=== PATIENT | female | born 1955 | race Two or more races ===

== ENCOUNTER 2017-05-20 12:40 | Inpatient (IN) | payer MEDICARE, MEDICAID ==
[~2017-05-20] VITALS: Ht 167.6 cm; Wt 90.7 kg
--- NOTE | 2017-05-20 13:00 | NUR ---
BB PRIVATE EMS FROM [facility] SENT BY DR BALDERAS FOR POSSIBLE UTI, PATIENT IS AFEBRILE. DENIES HEMTURIA NOR DYSURIA. VSS
[2017-05-20] MEDS ORDERED: ONDANSETRON 4 MG TAB.RAPDIS ONE ×2 (13:08→15:50)
[2017-05-20] MEDS ORDERED: ONDANSETRON 4 MG TAB.RAPDIS SL ONE (13:30)
[2017-05-20 13:36] LABS: EOSINOPHILS % (AUTO) 0.3 % (0.0-6.0); HEMATOCRIT 32 % (33-45); HEMOGLOBIN 10.6 g/dL (11.5-14.8); LYMPHOCYTES # (AUTO) 0.8 /CMM (0.8-4.8); LYMPHOCYTES % (AUTO) 8.1 % (20.0-44.0); MEAN CORPUSCULAR HEMOGLOBIN 32 PG (26.0-33.0); MEAN CORPUSCULAR HGB CONC 33 g/dl (31.0-36.0); MEAN CORPUSCULAR VOLUME 98 fL (82-100); MONOCYTES # (AUTO) 0.6 /CMM (0.1-1.30); MONOCYTES % (AUTO) 5.5 % (2.0-12.0); NEUTROPHILS # (AUTO) 8.7 /CMM (1.8-8.9); NEUTROPHILS % (AUTO) 86.1 % (43.0-81.0); PLATELET COUNT (AUTO) 352 /CMM (150-450); RDW COEFFICIENT OF VARIATION 16.4 (11.5-15.0); WHITE BLOOD COUNT (AUTO) 10.1 K/uL (4.3-11.0)
--- NOTE | 2017-05-20 13:40 | NUR ---
PT ASSISTED TO THE COMMODE. URINE SAMPLE OBTAINED, SENT.
[2017-05-20 13:57] LABS: CALCIUM, SERUM 10.2 mg/dL (8.5-10.1); CREATININE 4.2 mg/dL (0.6-1.3); POTASSIUM 4.7 mmol/L (3.5-5.1)
[2017-05-20 14:01] LABS: ALBUMIN 4.1 g/dL (3.4-5.0); BILIRUBIN,TOTAL 0.6 mg/dL (0.2-1.0); TOTAL PROTEIN, SERUM 7.7 g/dL (6.4-8.2)
[2017-05-20 14:12] LABS: APPEARANCE,URINE Turbid (CLEAR); BILIRUBIN,URINE Negative (NEGATIVE); BLOOD, URINE Small Ery/uL (NEGATIVE); COLOR,URINE Yellow (YELLOW); KETONES,URINE Negative (NEGATIVE); LEUKOCYTE ESTERASE ,URINE Trace (NEGATIVE); NITRITE, URINE Positive (NEGATIVE); PH,URINE 8.5 (5.0-8.0); PROTEIN,URINE >=300 mg/dl (NEGATIVE); UGLUCOSE Negative (NEGATIVE); UROBILINOGEN,URINE 0.2 EU/dL (0.2)
[2017-05-20 14:26] LABS: BACTERIA,URINE Moderate /HPF (None Seen); RBC,URINE 0-3 /HPF (0-2); SQUAMOUS EPITHELIAL CELL,UR Few /HPF (None Seen)
--- NOTE | 2017-05-20 14:41 | NUR ---
PAGED DR BALDERAS
[2017-05-20] MEDS ORDERED: NIFE60TA69 PO (16:18)
[2017-05-20] MEDS ORDERED: DOCU100T2 PO (16:18)
[2017-05-20] MEDS ORDERED: ISOS20TA6 PO (16:18)
[2017-05-20] MEDS ORDERED: LEVE500T9 PO (16:18)
[2017-05-20] MEDS ORDERED: FOLI1TAB16 PO (16:18)
[2017-05-20] MEDS ORDERED: ASPI-1152 PO (16:18)
[2017-05-20] MEDS ORDERED: SUCR1ORA4 PO (16:18)
[2017-05-20] MEDS ORDERED: ESCI5TAB PO (16:18)
[2017-05-20] MEDS ORDERED: ANAS1TAB8 PO (16:18)
[2017-05-20] MEDS ORDERED: PANT40TA2 PO (16:18)
[2017-05-20] MEDS ORDERED: HYDR-4077 PO (16:18)
[2017-05-20] MEDS ORDERED: INSU3INS6 SQ (16:18)
[2017-05-20] MEDS ORDERED: MINO10TA2 PO (16:18)
[2017-05-20] MEDS ORDERED: ATOR80TA PO (16:18)
[2017-05-20] MEDS ORDERED: NITR0.4T48 SL (16:19)
[2017-05-20] MEDS ORDERED: LORA1TAB PO (16:19)
[2017-05-20] MEDS ORDERED: METO5TAB87 PO (16:19)
[2017-05-20] MEDS ORDERED: CODE118S2 PO (16:19)
[2017-05-20] MEDS ORDERED: POLY119P2 PO (16:19)
--- NOTE | 2017-05-20 16:25 | NUR ---
CALLED NURSE SUP FOR TELE BED
--- NOTE | 2017-05-20 16:45 | NUR ---
TELE BED 321-2
--- NOTE | 2017-05-20 16:54 | NUR ---
REPORT GIVEN TO CHEKO ALONZO FOR TELE 321-1.
--- NOTE | 2017-05-20 16:56 | NUR ---
WOOD PATTERN MAKER REPORT NOTE RECEIVED REPORT ON THE PATIENT. PATIENT WILL BE ADMITED TELEMETRY IN ROOM 321-2
[2017-05-20] MEDS ORDERED: ONDANSETRON 4 MG TAB.RAPDIS SL PRN (17:30)
[2017-05-20 18:00] VITALS: BP 159/76
--- NOTE | 2017-05-20 18:00 | NUR ---
PLATFORM MILL SUPERVISOR ADMITTING NOTE PATIENT ARRIVED TO THE UNIT GUILLERMINA SALMON. A/O X2, FORGETFUL, CONFUSED. PATIENT HAS A RIGHT WRIST PATENT IV AND RIGHT CHEST WALL PERMA CATH. DENIES PAIN/DISCOMFORT AT THIS TIME. CHEST IS RISING EQUALLY, BILATERALLY. PATIENT WAS ASSISTED TO THE BED SAFELY. BED IS LOCKED, IN LOWEST POSITION, SIDE RAILS UP X2, BED ALARM IS ON. CALL LIGHT WITHIN REACH. PATIENT WAS EDUCATED TO CALL FOR ASSISTANCE. ALL NEEDS ARE MET AT THIS TIME. DR BALDERAS IS INFORMED OF PATIENT'S ARRIVAL TO THE UNIT. WILL ENDORSE TO MARCOS ALONZO FOR KEMAL.
--- NOTE | 2017-05-20 19:19 | NUR ---
SHANK BONER CLOSING NOTE SBAR BEDSIDE REPORT GIVEN TO CLINTON RODRÍGUEZ. Y. A/O X2, FORGETFUL, CONFUSED. PATIENT HAS A RIGHT WRIST PATENT IV AND RIGHT CHEST WALL PERMA CATH. DENIES PAIN/DISCOMFORT AT THIS TIME. CHEST IS RISING EQUALLY, BILATERALLY. PATIENT WAS ASSISTED TO THE BED SAFELY. BED IS LOCKED, IN LOWEST POSITION, SIDE RAILS UP X2, BED ALARM IS ON. CALL LIGHT WITHIN REACH. PATIENT WAS EDUCATED TO CALL FOR ASSISTANCE. ALL NEEDS ARE MET AT THIS TIME. DR BALDERAS IS INFORMED OF PATIENT'S ARRIVAL TO THE UNIT. ENDORSED TO CLINTON RODRÍGUEZ FOR KEMAL.
--- NOTE | 2017-05-20 19:30 | NUR ---
RN OPENING NOTES PATIENT IS IN BED, ALERT AND ORIENTED X2, EASY TO AROUSE. VS STABLE. NO C/O PAIN. NO SOB NOTED. RESPIRATIONS EVEN AND UNLABORED. IV ACCESS ON R WRIST PATENT AND INTACT. RIGHT CHEST WALL PERMA CATH. AWATING FOR MD ORDERS. BED IN LOW AND LOCKED POSITION. SIDE RAILS X2. CALL LIGHT WITHIN EASY REACH. CONTINUE TO MONITOR AND ASSESS DURING THE SHIFT.
[2017-05-20 20:00] VITALS: BP 159/76
[2017-05-20] MEDS ORDERED: DEXTROSE 50%-WATER 50 ML DISP.SYRIN IV PRN (22:00)
[2017-05-20] MEDS ORDERED: CEFTRIAXONE 1 G VIAL ONE (22:22)
[2017-05-20] MEDS ORDERED: ATORVASTATIN 40 MG TABLET ONE (22:23)
[2017-05-20] MEDS: ATORVASTATIN 40 MG TABLET PO SCH (22:48)
--- NOTE | 2017-05-20 22:50 | NUR ---
RN NOTES PATIENT C/O NAUSEA AND VOMITING. 4 MG ZOFRAN ADMINISTERED PO. CONTINUE TO MONITOR.
[2017-05-20] MEDS: IV NS 0.9% 1,000 ML IV PRN (23:01)
[2017-05-20] MEDS: CEFTRIAXONE 1 G in IV D5W 50 ML IV SCH (23:01)
[2017-05-20] MEDS: BLOOD SUGAR DIAGNOSTIC 1 EACH STRIP IN SCH (23:38)
[2017-05-21] VITALS: BP 154/69
[2017-05-21] MEDS: INSULIN REGULAR, HUMAN 100 UNIT/ML 3 ML VIAL SQ PRN ×4 (00:38→21:19)
[2017-05-21 04:00] VITALS: BP 168/75
[2017-05-21 06:33] LABS: BASOPHILS % (AUTO) 0.3 % (0.0-2.0); HEMATOCRIT 30 % (33-45); HEMOGLOBIN 9.9 g/dL (11.5-14.8); LYMPHOCYTES # (AUTO) 1.1 /CMM (0.8-4.8); LYMPHOCYTES % (AUTO) 11.6 % (20.0-44.0); MEAN CORPUSCULAR HEMOGLOBIN 32 PG (26.0-33.0); MEAN CORPUSCULAR HGB CONC 33 g/dl (31.0-36.0); MEAN CORPUSCULAR VOLUME 98 fL (82-100); MONOCYTES # (AUTO) 0.8 /CMM (0.1-1.30); MONOCYTES % (AUTO) 9.2 % (2.0-12.0); NEUTROPHILS # (AUTO) 7.2 /CMM (1.8-8.9); NEUTROPHILS % (AUTO) 78.9 % (43.0-81.0); PLATELET COUNT (AUTO) 314 /CMM (150-450); RDW COEFFICIENT OF VARIATION 16.4 (11.5-15.0); RED BLOOD CELL COUNT(AUTO) 3.11 MIL/uL (4.0-5.2); WHITE BLOOD COUNT (AUTO) 9.1 K/uL (4.3-11.0)
[2017-05-21] MEDS: BLOOD SUGAR DIAGNOSTIC 1 EACH STRIP IN SCH ×4 (06:36→21:12)
[2017-05-21 06:44] LABS: THYROID STIMULATING HORMONE 1.26 uIU/mL (0.358-3.74)
--- NOTE | 2017-05-21 06:51 | NUR ---
RN CLOSING NOTES PATIENT IS SLEEPING IN BED, EASY TO AROUSE, ALERT AND ORIENTED X2. VS STABLE. NO SOB NOTED. RESPIRATIONS EVEN AND UNLABORED. IV ACCESS ON R WRIST PATENT AND INTACT, INFUSING NS AT 70 ML/HR. NO REDNESS OR INFILTRATION NOTED. RIGHT CHEST WALL PERMA CATH. PICTURES TAKEN AND PLACED IN THE CHART. ALL NEEDS ARE MET AND MEDICATIONS GIVEN PER MD ORDER. BED IN LOW AND LOCKED POSITION. SIDE RAILS X2. CALL LIGHT WITHIN EASY REACH. WILL ENDORSE TO RN DAY SHIFT FOR CONTINUITY OF CARE.
[2017-05-21 07:02] VITALS: BP 164/58
--- NOTE | 2017-05-21 07:15 | NUR ---
RN OPENING NOTES RECEIVED PT. IN BED AWAKE WATCHING TV, A&OX4. BREATHING UNLABORED, AND EVENLY ON OXYGEN AT 5L/MIN VIA NASAL CANNULA. NO S/S OF ACUTE DISTRESS. IV FLUIDS RUNNING AT 75 ML/HR. ASSISTED PT. TO BED JOHNS. PT. HAD 450 CC OF CLEAR AND YELLOW URINE OUTPUT. RIGHT LEG HAS NADIYA BANDAGE WRAPPED AROUND IT, DRESSING IS CLEAN, DRY AND INTACT. BED IS IN LOWEST AND LOCKED POSITION. 2 SIDE RAILS UP, AND INSTRUCTED PT. TO USE CALL LIGHT FOR ASSISTANCE. WILL CONTINUE TO ASSESS AND MONITOR. ALL NEEDS MET.
--- NOTE | 2017-05-21 07:41 | NUR ---
RN OPENING NOTES RECEIVED PT. IN BED SLEEPING. BREATHING UNLABORED, AND EVENLY ON ROOM AIR. NO S/S OF ACUTE DISTRESS. IV FLUIDS RUNNING AT 70 ML/HR. BED IS IN LOWEST AND LOCKED POSITION. 2 SIDE RAILS UP, AND CALL LIGHT WITHIN REACH. WILL CONTINUE TO ASSESS AND MONITOR.
[2017-05-21 08:00] VITALS: BP 121/61
--- NOTE | 2017-05-21 08:50 | NUR ---
ms rn received on bed, awake,alert,oriented x2 , patient still nauseous, no sob noted, will monitor patient's condition.
[2017-05-21] MEDS ORDERED: POLYETHYLENE GLYCOL 3350 17 GM POWD.PACK PO PRN (09:00)
[2017-05-21] MEDS: PANTOPRAZOLE 40 MG TABLET.DR PO SCH ×2 (09:00→17:42)
[2017-05-21] MEDS ORDERED: CODEINE/PROMETHAZINE HCL 5 ML UDC PO PRN ×2 (09:00→10:30)
[2017-05-21] MEDS ORDERED: MINOXIDIL (10MG) 10 MG TABLET PO SCH (09:00)
[2017-05-21] MEDS: ANASTROZOLE 1 MG TABLET PO SCH (09:00)
[2017-05-21] MEDS: SUCRALFATE 1 G/10 ML UDC PO SCH ×4 (09:00→20:37)
[2017-05-21] MEDS: DOCUSATE SODIUM 100 MG CAPSULE PO SCH ×3 (09:00→17:52)
[2017-05-21] MEDS: hydrALAZINE HCL 50 MG TABLET PO SCH ×3 (09:00→17:43)
[2017-05-21] MEDS ORDERED: NITROGLYCERIN 0.4 MG/TAB BOTTLE SL PRN (09:00)
--- NOTE | 2017-05-21 09:00 | NUR ---
ms rn refused breakfast, for dialysis today..
--- NOTE | 2017-05-21 09:50 | NUR ---
MS RN REFUSED MEDICATIONS,NOT FEELING WELL, WILL OFFER AGAIN LATER.
--- NOTE | 2017-05-21 12:00 | NUR ---
MS RN BS - 231 - REFUSED COVERAGE DUE TO PATIENT NOT EATING , NO S/S OF HYPER/HYPOGLYCEMIA NOTED.
[2017-05-21] MEDS: METOCLOPRAMIDE HCL 10 MG TABLET PO SCH ×3 (13:32→20:37)
[2017-05-21 16:00] VITALS: BP 120/68
--- NOTE | 2017-05-21 17:30 | NUR ---
MS RN PATIENT GET UP AND EAT, DUE MEDS GIVEN TOLERATED WELL. BS - 186 - 3 UNITS INSULIN WAS GIVEN SQ,ALL NEEDS ATTENDED.
[2017-05-21] MEDS: MINOXIDIL (2.5MG) 2.5 MG TABLET PO SCH ×2 (17:44→17:50)
[2017-05-21] MEDS: LEVETIRACETAM (250 MG) 250 MG TABLET PO SCH ×2 (17:48→20:37)
[2017-05-21] MEDS: ESCITALOPRAM OXALATE (10 MG) 10 MG TABLET PO SCH (17:49)
[2017-05-21] MEDS: ASPIRIN EC 81 MG TABLET.DR PO SCH (17:49)
[2017-05-21] MEDS: ISOSORBIDE MONONITRATE 20 MG TABLET PO SCH (17:49)
[2017-05-21] MEDS: FOLIC ACID 1 MG TABLET PO SCH (17:49)
[2017-05-21] MEDS: NIFEdipine XL 60 MG TAB PO SCH (17:50)
--- NOTE | 2017-05-21 19:15 | NUR ---
MS RN OPENING NOTES: RECEIVED PT IN BED AND IS ASLEEP. PT APPEARS TO BE LETHARGIC BUT PT IS AROUSABLE TO NAME AND TOUCH. PT IS SPANISHING SPEAKING AND UNDERSTANDING ONLY BUT CAN UNDERSTAND [place] CITIZEN. PT IS A/OX2-3. PT HAS IV ON R WRIST #22G AND HAS BEEN FLUSHED. PT DOES NOT WANT TO BE CONNECTED TO IV AT THIS MOMENT. WILL ATTEMPT TO CONNECT HER AT ANOTHER TIME. CALL LIGHT WITHIN PT'S REACH. BED KEPT IN LOW, LOCKED POSITION, AND SIDE RAILS X 2UP. WILL CONTINUE TO MONITOR PT.
[2017-05-21 20:00] VITALS: BP 119/42
[2017-05-21] MEDS: CEFTRIAXONE 1 G in IV D5W 50 ML IV SCH (20:36)
[2017-05-21] MEDS: INSULIN DETEMIR 100 UNIT/ML CARTRIDGE SQ SCH (21:20)
--- NOTE | 2017-05-21 21:20 | NUR ---
MS RN NOTES: BLOOD SUGAR WAS 155. 8 UNITS OF LEVEMIR WAS ADMINISTERED AND 2 UNITS OF INSULIN WAS ADMINISTERED WELL. SNACK WAS OFFERED AND PROVIDED TO PT. PT STILL SLEEPY BUT LEFT JUICE AT BEDSIDE. WILL CONTINUE TO MONITOR PT.
--- NOTE | 2017-05-21 21:30 | NUR ---
MS RN NOTES: CONSENT FOR HEMODIALYSIS OBTAINED AND PLACED IN CHART.
[2017-05-21] MEDS ORDERED: INSULIN DETEMIR 100 UNIT/ML CARTRIDGE SQ SCH (22:00)
[2017-05-21] MEDS ORDERED: Medication Not On Formulary EA (Atorvastatin Calcium (Lipitor) 80 MG) PO SCH (22:00)
[2017-05-21] MEDS ORDERED: INSULIN GLARGINE, 100 UNIT/ML CARTRIDGE SQ SCH (22:00)
[2017-05-21] MEDS: LORAZEPAM 1 MG TABLET PO PRN (23:00)
--- NOTE | 2017-05-21 23:00 | NUR ---
MS RN NOTES: PT REPORTED THAT SHE WAS GETTING ANXIETY AND REQUESTING MEDICATION FOR ANXIETY. PT WAS ADMINISTERED ATIVAN PO. WILL CONTINUE TO MONITOR PT.
--- NOTE | 2017-05-21 23:45 | NUR ---
MS RN NOTES: CALLED DR. BALDERAS TO INFORM HIM THAT PATIENT IS HAVING NAUSEA BUT NO EMESIS AND ALSO THAT PT IS HAVING AB PAIN. NO ORDERS WERE GIVEN. WILL CONTINUE TO MONITOR PT.
[2017-05-22] MEDS: IV NS 0.9% 1,000 ML IV PRN (05:26)
[2017-05-22] MEDS: BLOOD SUGAR DIAGNOSTIC 1 EACH STRIP IN SCH ×4 (06:06→21:57)
[2017-05-22] MEDS: INSULIN REGULAR, HUMAN 100 UNIT/ML 3 ML VIAL SQ PRN ×2 (06:38→21:48)
--- NOTE | 2017-05-22 06:38 | NUR ---
MS RN NOTES: BLOOD SUGAR THIS AM WAS 139. 2 UNITS OF INSULIN WAS ADMINISTERED. WILL CONTINUE TO MONITOR PT.
--- NOTE | 2017-05-22 06:48 | NUR ---
MS RN CLOSING NOTES: ALL NEEDS WERE ATTENDED ANTICIPATED FOR. PT IS IN BED ASLEEP. PT AROUSABLE TO NAME AND TOUCH. PT IS SENEGALESE SPEAKING AND UNDERSTANDING ONLY BUT CAN ALSO UNDERSTAND SOME CITIZEN OF [place]. PT IS A/OX2-3 WHEN SHE WAS AWAKE. PT HAS IV ON R WRIST #22G AND IS BEING INFUSED WITH NS AT 70ML/HR. BEDSIDE COMMODE MADE AVAILABLE. CALL LIGHT WITHIN PT'S REACH. BED KEPT IN LOW, LOCKED POSITION, AND SIDE RAILS X 2UP. WILL ENDORSE TO AM NURSE FOR KEMAL.
--- NOTE | 2017-05-22 07:36 | NUR ---
MS/RN OPENING NOTE PATIENT IN BED IN STABLE CONDITION. A/O 1-2, BELARUSIAN SPEAKING. NO SIGNS OF ACUTE DISTRESS. NO COMPLAIN OF PAIN OR DISCOMFORT. ALL NEEDS ATTENDED TO. CALL LIGHT WITHIN REACH. WILL CONTINUE TO MONITOR TO ENSURE SAFETY.
[2017-05-22 08:00] VITALS: BP 143/69
[2017-05-22] MEDS: SUCRALFATE 1 G/10 ML UDC PO SCH ×4 (08:44→20:25)
[2017-05-22] MEDS: PANTOPRAZOLE 40 MG TABLET.DR PO SCH ×2 (08:45→16:57)
[2017-05-22] MEDS: DOCUSATE SODIUM 100 MG CAPSULE PO SCH ×2 (08:45→16:57)
[2017-05-22] MEDS: METOCLOPRAMIDE HCL 10 MG TABLET PO SCH ×4 (08:45→20:25)
[2017-05-22] MEDS: ESCITALOPRAM OXALATE (10 MG) 10 MG TABLET PO SCH (08:45)
[2017-05-22] MEDS: FOLIC ACID 1 MG TABLET PO SCH (08:45)
[2017-05-22] MEDS: ASPIRIN EC 81 MG TABLET.DR PO SCH (08:45)
[2017-05-22] MEDS: ANASTROZOLE 1 MG TABLET PO SCH (08:45)
[2017-05-22] MEDS: ISOSORBIDE MONONITRATE 20 MG TABLET PO SCH (08:45)
[2017-05-22] MEDS: hydrALAZINE HCL 50 MG TABLET PO SCH ×3 (08:46→16:58)
[2017-05-22] MEDS: NIFEdipine XL 60 MG TAB PO SCH (08:46)
[2017-05-22] MEDS: LEVETIRACETAM (250 MG) 250 MG TABLET PO SCH ×2 (08:53→20:25)
[2017-05-22] MEDS: INSULIN DETEMIR 100 UNIT/ML CARTRIDGE SQ SCH ×2 (08:55→21:49)
--- NOTE | 2017-05-22 09:00 | NUR ---
MS/RN HYDRALAZINE AND PROCARDIA HELD 9AM BP MEDS HYDRALAZINE AND PROCARDIA HELD SECONDARY TO PATIENT SCHEDULE FOR HEMODIALYSIS TREATMENT TODAY
[2017-05-22] MEDS ORDERED: EPOETIN ALFA (10,000 UNIT) 10,000 UNIT/ML VIAL IV ONE (12:00)
--- NOTE | 2017-05-22 12:45 | NUR ---
MS/RN SEEN BY DR BALDERAS PATIENT SEEN BY DR BALDERAS WITH NO ORDERS AT THIS TIME.
[2017-05-22] MEDS: APIXABAN 5 MG TABLET PO SCH (16:57)
[2017-05-22] MEDS: MINOXIDIL (2.5MG) 2.5 MG TABLET PO SCH (16:57)
[2017-05-22 17:07] VITALS: BP 162/74
--- NOTE | 2017-05-22 18:14 | NUR ---
MS/RN CLOSING NOTE PATIENT IN BED IN STABLE CONDITION. A/O X 2-3, AZERBAIJANI SPEAKING. NO SIGNS OF ACUTE DISTRESS. NO COMPLAIN OF PAIN OR DISCOMFORT. ALL NEEDS ATTENDED TO. CALL LIGHT WITHIN REACH. WILL ENDORSE TO NEXT SHIFT FOR CONTINUITY OF CARE.
--- NOTE | 2017-05-22 19:30 | NUR ---
RN OPENING NOTES PATIENT IS IN BED, ALERT AND ORIENTED X2, EASY TO AROUSE. VS STABLE. NO C/O PAIN. NO SOB NOTED. RESPIRATIONS EVEN AND UNLABORED. IV ACCESS ON R WRIST PATENT AND INTACT, INFUSING NS AT 70 ML/HR. NO REDNESS OR INFILTRATION NOTED. RIGHT CHEST WALL PERMA CATH. BED IN LOW AND LOCKED POSITION. SIDE RAILS X2. CALL LIGHT WITHIN EASY REACH. CONTINUE TO MONITOR AND ASSESS DURING THE SHIFT.
[2017-05-22 20:00] VITALS: BP 121/66
[2017-05-22 20:16] VITALS: BP 121/66
[2017-05-22] MEDS: CEFTRIAXONE 1 G in IV D5W 50 ML IV SCH (21:40)
[2017-05-22] MEDS: ATORVASTATIN 40 MG TABLET PO SCH (21:50)
[2017-05-22] MEDS: LORAZEPAM 1 MG TABLET PO PRN (23:36)
[2017-05-23] MEDS: IV NS 0.9% 1,000 ML IV PRN (06:10)
[2017-05-23] MEDS: BLOOD SUGAR DIAGNOSTIC 1 EACH STRIP IN SCH ×4 (06:21→22:19)
[2017-05-23] MEDS: INSULIN REGULAR, HUMAN 100 UNIT/ML 3 ML VIAL SQ PRN ×2 (06:22→22:23)
--- NOTE | 2017-05-23 06:23 | NUR ---
RN NOTES BS 83. NO INSULIN ADMINISTERED. CONTINUE TO MONITOR.
--- NOTE | 2017-05-23 06:47 | NUR ---
RN CLOSING NOTES PATIENT IS SLEEPING IN BED, EASY TO AROUSE. VS STABLE. NO SOB NOTED. RESPIRATIONS EVEN AND UNLABORED. IV ACCESS ON R WRIST PATENT AND INTACT, INFUSING NS AT 70 ML/HR. NO REDNESS OR INFILTRATION NOTED. RIGHT CHEST WALL PERMA CATH. ALL NEEDS ARE MET AND MEDICATIONS GIVEN PER MD ORDER. BED IN LOW AND LOCKED POSITION. SIDE RAILS X2. CALL LIGHT WITHIN EASY REACH. WILL ENDORSE TO RN DAY SHIFT FOR CONTINUITY OF CARE.
--- NOTE | 2017-05-23 07:34 | NUR ---
MS RN OPENING NOTES RECEIVED PATIENT IN STABLE CONDITION. IN NO APPARENT DISTRESS. PATIENT IS RESTING IN BED. BEDSIDE RAILS ARE UP X2. BED IS LOCKED AND LOWERED. CALL LIGHT IS WITHIN REACH. WILL CONTINUE TO MONITOR.
[2017-05-23 08:00] VITALS: BP 151/92
[2017-05-23] MEDS: LORAZEPAM 1 MG TABLET PO PRN ×2 (09:14→18:01)
[2017-05-23] MEDS: LEVETIRACETAM (250 MG) 250 MG TABLET PO SCH ×2 (09:15→20:25)
[2017-05-23] MEDS: METOCLOPRAMIDE HCL 10 MG TABLET PO SCH ×4 (09:15→20:25)
[2017-05-23] MEDS: ISOSORBIDE MONONITRATE 20 MG TABLET PO SCH (09:16)
[2017-05-23] MEDS: DOCUSATE SODIUM 100 MG CAPSULE PO SCH (09:16)
[2017-05-23] MEDS: ANASTROZOLE 1 MG TABLET PO SCH (09:16)
[2017-05-23] MEDS: MINOXIDIL (2.5MG) 2.5 MG TABLET PO SCH ×2 (09:17→16:39)
[2017-05-23] MEDS: hydrALAZINE HCL 50 MG TABLET PO SCH ×3 (09:17→16:39)
[2017-05-23] MEDS: PANTOPRAZOLE 40 MG TABLET.DR PO SCH ×2 (09:17→16:18)
[2017-05-23] MEDS: FOLIC ACID 1 MG TABLET PO SCH (09:17)
[2017-05-23] MEDS: SUCRALFATE 1 G/10 ML UDC PO SCH ×4 (09:20→20:25)
[2017-05-23] MEDS: NIFEdipine XL 60 MG TAB PO SCH (09:21)
[2017-05-23] MEDS: ESCITALOPRAM OXALATE (10 MG) 10 MG TABLET PO SCH (09:24)
[2017-05-23] MEDS: INSULIN DETEMIR 100 UNIT/ML CARTRIDGE SQ SCH ×2 (09:24→20:29)
[2017-05-23] MEDS: APIXABAN 5 MG TABLET PO SCH ×2 (09:24→16:17)
[2017-05-23 16:00] VITALS: BP 152/58
--- NOTE | 2017-05-23 18:31 | NUR ---
MS RN CLOSING NOTES PATIENT IS IN STABLE CONDITION. IN NO APPARENT DISTRESS. BEDSIDE RAILS ARE UP X2. BED IS LOCKED AND LOWERED. ALL NEEDS WERE MET. CALL LIGHT IS WITHIN REACH. WILL ENDORSE CARE TO ONLINE ADVERTISING ANALYST NURSE FOR KEMAL.
[2017-05-23 20:00] VITALS: BP 103/41
[2017-05-23] MEDS: CEFTRIAXONE 1 G in IV D5W 50 ML IV SCH (20:33)
[2017-05-23 22:00] VITALS: BP 103/41
--- NOTE | 2017-05-23 22:00 | NUR ---
MS RN NOTE BLOOD SUGAR 149. 2 UNITS OF INSULIN GIVEN.
[2017-05-23] MEDS: ATORVASTATIN 40 MG TABLET PO SCH (22:19)
--- NOTE | 2017-05-24 01:00 | NUR ---
MS RN NOTE IV INFILTRATED. REMOVED. PATIENT REFUSING NEW IV AT THIS TIME. EXPLAINED BENEFITS. CONTINUED TO REFUSE. WILL TRY AGAIN LATER.
--- NOTE | 2017-05-24 05:00 | NUR ---
MS RN NOTE PATIENT CONTINUES TO REFUSE IV INSERTION. EXPLAINED IMPORTANCE OF IV TO PATIENT. CONTINUES TO REFUSE AT THIS TIME. WILL TRY AGAIN LATER.
--- NOTE | 2017-05-24 06:01 | NUR ---
MS RN CLOSING NOTES PATIENT IS IN STABLE CONDITION. IN NO APPARENT DISTRESS. CONTINUES TO INSERT IV INSERTION. BEDSIDE RAILS ARE UP X2. BED IS LOCKED AND LOWERED. ALL NEEDS WERE MET. CALL LIGHT IS WITHIN REACH. WILL ENDORSE CARE TO DAY SHIFT NURSE FOR KEMAL.
[2017-05-24] MEDS: BLOOD SUGAR DIAGNOSTIC 1 EACH STRIP IN SCH ×4 (07:00→21:35)
[2017-05-24 08:00] VITALS: BP 144/63
--- NOTE | 2017-05-24 09:00 | NUR ---
CALLED PHARMACY ABOUT ELIQUIS PATIENT IS SCHEDULED TO RECEIVE AT 0900. THEY WILL BRING UP THE MEDICATION
[2017-05-24] MEDS: SUCRALFATE 1 G/10 ML UDC PO SCH ×4 (09:31→21:27)
[2017-05-24] MEDS: MINOXIDIL (2.5MG) 2.5 MG TABLET PO SCH ×2 (09:32→16:21)
[2017-05-24] MEDS: ESCITALOPRAM OXALATE (10 MG) 10 MG TABLET PO SCH (09:32)
[2017-05-24] MEDS: ANASTROZOLE 1 MG TABLET PO SCH (09:33)
[2017-05-24] MEDS: LORAZEPAM 1 MG TABLET PO PRN ×2 (09:34→18:36)
[2017-05-24] MEDS: NIFEdipine XL 60 MG TAB PO SCH (09:34)
[2017-05-24] MEDS: hydrALAZINE HCL 50 MG TABLET PO SCH ×3 (09:34→16:20)
[2017-05-24] MEDS: LEVETIRACETAM (250 MG) 250 MG TABLET PO SCH ×2 (09:34→21:27)
[2017-05-24] MEDS: PANTOPRAZOLE 40 MG TABLET.DR PO SCH ×2 (09:34→16:23)
[2017-05-24] MEDS: FOLIC ACID 1 MG TABLET PO SCH (09:34)
[2017-05-24] MEDS: ISOSORBIDE MONONITRATE 20 MG TABLET PO SCH (09:35)
[2017-05-24] MEDS: METOCLOPRAMIDE HCL 10 MG TABLET PO SCH ×4 (09:35→21:28)
[2017-05-24] MEDS: INSULIN DETEMIR 100 UNIT/ML CARTRIDGE SQ SCH ×2 (09:44→21:29)
--- NOTE | 2017-05-24 10:00 | NUR ---
CALLED PHARMACY FOR ELIQUIS X2. HAVE NOT BROUGHT ELIQUIS.
[2017-05-24] MEDS ORDERED: COLLOIDAL OATMEAL/LOTION 354 ML BOTTLE TP PRN (10:30)
[2017-05-24] MEDS: APIXABAN 5 MG TABLET PO SCH ×2 (12:12→16:23)
[2017-05-24] MEDS: INSULIN REGULAR, HUMAN 100 UNIT/ML 3 ML VIAL SQ PRN (12:46)
--- NOTE | 2017-05-24 15:00 | NUR ---
PATIENT STARTED DIALYSIS.
[2017-05-24 16:00] VITALS: BP 138/69
--- NOTE | 2017-05-24 16:20 | NUR ---
SHAVON TELLEZ DUE TO PATIENT CURRENTLY RECEIVING DIALYSIS Addendum: 05/24/17 at 1621 by ALANA VALERA RN SHAVON KELLOGG
--- NOTE | 2017-05-24 17:00 | NUR ---
PATIENT FINISHED DIALYSIS. 1,800 OUTPUT. VITAL SIGNS STABLE. BP 126/51. HEART RATE 80. TEMPERATURE 98F
[2017-05-24] MEDS: TRAMADOL HCL 50 MG TABLET PO PRN (17:52)
--- NOTE | 2017-05-24 18:47 | NUR ---
MS RN CLOSING NOTES PATIENT IS IN STABLE CONDITION. IN NO APPARENT DISTRESS. PATIENT IS RELAXING IN BED. CALL LIGHT IS WITHIN REACH BEDSIDE RAILS ARE UP X2. BED IS LOCKED AND LOWERED. ALL NEEDS WERE MET. WILL ENDORSE CARE TO HEAVY MOBILE EQUIPMENT REPAIRER NURSE FOR KEMAL.
[2017-05-24 20:12] VITALS: BP 142/73
[2017-05-24] MEDS: CEFTRIAXONE 1 G in IV D5W 50 ML IV SCH (21:25)
[2017-05-24] MEDS: ATORVASTATIN 40 MG TABLET PO SCH (21:28)
[2017-05-24 22:00] VITALS: BP 142/73
[2017-05-25] MEDS: TRAMADOL HCL 50 MG TABLET PO PRN (01:13)
[2017-05-25] MEDS: LORAZEPAM 1 MG TABLET PO PRN (02:34)
--- NOTE | 2017-05-25 06:31 | NUR ---
MS RN NOTE PATIENT STABLE. SLEEPING AT THIS TIME WITH NO DISTRESS NOTED. BLOOD SUGAR 94. NO COVERAGE NEEDED. ALL NEEDS MET AND ATTENDED TO. WILL ENDORSE TO DAY SHIFT FOR KEMAL.
[2017-05-25] MEDS: BLOOD SUGAR DIAGNOSTIC 1 EACH STRIP IN SCH ×3 (06:48→17:33)
--- NOTE | 2017-05-25 07:31 | NUR ---
MS RN OPENING NOTES PATIENT RECEIVED AWAKE IN BED IN NO ACUTE SIGNS OF DISTRESS. A/O X2, FILIPINO SPEAKING, DENIES PAIN OR DISCOMFORTS AT THIS TIME. ON ROOM AIR, RESPIRATIONS EVEN AND UNLABORED. IV ACCESS ON AC PATENT AND INTACT. PT HAS RIGHT CHEST WALL PERMA CATH IN PLACED. BED IN LOW AND LOCKED POSITION WITH SIDE RAILS UP X2. CALL LIGHT WITHIN EASY REACH. WILL CONTINUE TO MONITOR.
[2017-05-25 08:00] VITALS: BP 131/47
[2017-05-25] MEDS: INSULIN DETEMIR 100 UNIT/ML CARTRIDGE SQ SCH (09:00)
[2017-05-25] MEDS: hydrALAZINE HCL 50 MG TABLET PO SCH ×3 (09:00→17:02)
[2017-05-25] MEDS: MINOXIDIL (2.5MG) 2.5 MG TABLET PO SCH ×2 (09:00→17:03)
[2017-05-25] MEDS: NIFEdipine XL 60 MG TAB PO SCH (09:00)
[2017-05-25] MEDS: SUCRALFATE 1 G/10 ML UDC PO SCH ×3 (09:08→17:02)
[2017-05-25] MEDS: APIXABAN 5 MG TABLET PO SCH ×2 (09:08→17:04)
[2017-05-25] MEDS: ANASTROZOLE 1 MG TABLET PO SCH (09:10)
[2017-05-25] MEDS: LEVETIRACETAM (250 MG) 250 MG TABLET PO SCH (09:10)
[2017-05-25] MEDS: PANTOPRAZOLE 40 MG TABLET.DR PO SCH ×2 (09:10→17:03)
[2017-05-25] MEDS: FOLIC ACID 1 MG TABLET PO SCH (09:10)
[2017-05-25] MEDS: METOCLOPRAMIDE HCL 10 MG TABLET PO SCH ×3 (09:10→17:03)
[2017-05-25] MEDS: ESCITALOPRAM OXALATE (10 MG) 10 MG TABLET PO SCH (09:11)
[2017-05-25] MEDS: ISOSORBIDE MONONITRATE 20 MG TABLET PO SCH (09:14)
--- NOTE | 2017-05-25 09:28 | NUR ---
RN NOTES PT REFUSED INSULIN LEVEMIR 6U THIS MORNING BEC BS IS 97 MGDL. WILL CONTINUE TO MONITOR
[2017-05-25 16:00] VITALS: BP 144/64
--- NOTE | 2017-05-25 16:59 | NUR ---
RN NOTES PATIENT FOR DISCHARGE THIA AFTERNOON TO [facility]. REPORTS GIVEN TO STAFF TALI.
[2017-05-25] MEDS: INSULIN REGULAR, HUMAN 100 UNIT/ML 3 ML VIAL SQ PRN (17:34)
--- NOTE | 2017-05-25 18:40 | NUR ---
MS RN CLOSING NOTES PATIENT AWAKE AND RESTING @ MODERATE HIGH BACKREST IN BED. A/O X3, YI SPEAKING. S NO SIGNIFICANT CHANGES NOTED THROUGHOUT THE DAY. ON ROOM AIR, RESPIRATIONS EVEN AND UNLABORED. IV ACCESS ON AC PATENT AND INTACT. PT HAS RIGHT CHEST WALL PERMA CATH IN PLACED. HOB ELEVATED. KEPT BED IN LOW AND LOCKED POSITION WITH SIDE RAILS UP X2. CALL LIGHT WITHIN EASY REACH. ALL NEEDS AND CARE PROVIDED WELL. PT FOR DISCHARGE TONIGHT TO [facility]. EMT CREW CALLED AND WILL COME AND PICK-UP PT @ 1930. WILL ENDORSED TO HUMAN RESOURCES GENERALIST NURSE.
--- NOTE | 2017-05-25 19:15 | NUR ---
RN OPEN NOTES RECEIVED PATIENT AWAKE IN BED. A/O X3. NO SIGNS OF DISTRESS OR DISCOMFORT. BREATHING EVEN AND UNLABORED. IV ACCESS IN RAC PATENT AND INTACT, NO SIGNS OF REDNESS OR INFILTRATION. HAS RCW PERMACATH INTACT. BED IN LOW LOCKED POSITION WITH SIDE RAILS X3. CALL LIGHT WITHIN REACH. PAT[facility], REPORT WAS ALSO GIVEN PER VIVIANE ALONZO. WILL CONTINUE TO MONITOR.
[2017-05-25 20:00] VITALS: BP 146/58
--- NOTE | 2017-05-25 20:15 | NUR ---
RN CLOSING NOTES PATIENT DISCHARGE TO [facility] IN STABLE CONDITION VIA [facility] WITH FAMILY AT BEDSIDE. NO SIGNS OF DISTRESS OR DISCOMFORT. BREATHING EVEN AND UNLABORED. DENIES ANY PAIN. IV ACCESS IN [facility] WAS REMOVED. ALL PATIENT BELONGINGS ARE WITH PATIENT. SKINS INTACT. DISCHARGE EDUCATION AND INSTRUCTIONS GIVEN AND PATIENT VERBALIZE UNDERSTANDING. PATIENT TO FOLLOW UP WITH PRIMARY CARE PHYSICIAN.
== END 2017-05-25 20:15 | DRG 308 ==
LOC: ER 12:41 → TELE 17:00 → MED 05-21 11:20
PROVIDERS: ADMIT Internal Medicine; ATTEND Internal Medicine
PROC: 5A1D70Z Performance of Urinary Filtration, Intermittent, Less than 6 Hours Per Day (ICD-10-PCS; principal; 2017-05-22)
PROC: 5A1D70Z Performance of Urinary Filtration, Intermittent, Less than 6 Hours Per Day (ICD-10-PCS; 2017-05-24)
DX: I48.91 Unspecified atrial fibrillation (principal); G93.40 Encephalopathy, unspecified; J96.90 Respiratory failure, unspecified, unspecified whether with hypoxia or hypercapnia; I13.2 Hypertensive heart and chronic kidney disease with heart failure and with stage 5 chronic kidney disease, or end stage renal disease; J18.9 Pneumonia, unspecified organism; F03.91 Unspecified dementia, unspecified severity, with behavioral disturbance; E11.22 Type 2 diabetes mellitus with diabetic chronic kidney disease; I50.30 Unspecified diastolic (congestive) heart failure; N18.6 End stage renal disease; I50.33 Acute on chronic diastolic (congestive) heart failure; N39.0 Urinary tract infection, site not specified; I27.21 Secondary pulmonary arterial hypertension; D63.8 Anemia in other chronic diseases classified elsewhere; D63.1 Anemia in chronic kidney disease; I25.10 Atherosclerotic heart disease of native coronary artery without angina pectoris; Z85.3 Personal history of malignant neoplasm of breast; Z79.899 Other long term (current) drug therapy; Z99.2 Dependence on renal dialysis; Z79.01 Long term (current) use of anticoagulants; Z79.4 Long term (current) use of insulin; G40.409 Other generalized epilepsy and epileptic syndromes, not intractable, without status epilepticus; K21.9 Gastro-esophageal reflux disease without esophagitis
CPT/HCPCS: 36415; 70450-TC; 71010-TC; 80053-TC; 80061-TC; 81000-TC; 82962-TC; 83605-TC; 84443-TC; 85025-TC; 87081-TC; 87086-TC; 90935-TC; 93307-TC; J0696; J0885; J1815; J7030; J7060; J8597; Q0162; Z7610

== ENCOUNTER 2019-08-03 19:08 | Inpatient (IN) | payer MEDICARE, MEDICAID ==
[~2019-08-03 19:08] MED LIST: ANAS1TAB8 PO; ASPI-1152 PO; ATOR80TA PO; CODE118S4 PO; DOCU100T2 PO; ESCI5TAB PO; FOLI1TAB16 PO; HYDR-4077 PO; INSU3INS6 SQ; ISOS20TA6 PO; LEVE500T9 PO; LORA1TAB PO; METO5TAB87 PO; MINO10TA2 PO; NIFE-34 PO; NITR0.4T48 SL; PANT40TA2 IV; POLY119P2 PO; SUCR1ORA4 PO
--- NOTE | 2019-08-03 23:40 | NUR ---
MS ARCHITECTURAL MANAGER NOTE PATIENT IS A DIRECT ADMIT FROM [facility]. ARRIVE VIA GURNEY WITH 2 EMT TECHS. PATIENT TRANSFERRED TO BED. PATIENT IS A/OX4. THAI SPEAKING, ABLE TO MAKE BASIC NEEDS KNOWN. ON OXYGEN 2L/MIN VIA NASAL CANNULA. RESPIRATIONS ARE EVEN AND UNLABORED. NO S/S SOB NOTED. IN NO APPARENT DISTRESS AT THIS TIME. IV ACCESS IN RAC #20 PATENT AND SALINE LOCKED. INITIAL PHYSICAL ASSESSMENT COMPLETED AT THIS TIME. SKIN ASSESSMENT COMPELTED, PHOTOS TAKEN AND PLACED, IN CHART. BUDGET MANAGER TOOK VITAL SIGNS AND COMPLETED BELONGINGS LIST. BED IS LOW AND LOCKED, HOB ELEVATED IN SEMI FOWLERS, SIDE RAILS UP X2, BED ALARM ON. CALL LIGHT WITHIN REACH. WILL CONTINUE TO MONITOR.
--- NOTE | 2019-08-04 | NUR ---
MS RN NOTE DR. TREJO INFORMED THAT PATIENT HAS ARRIVED. HE WILL PLACE ORDERS. WILL CONTINUE TO MONITOR.
[2019-08-04] MEDS ORDERED: ACET-868 PO (00:27)
[2019-08-04] MEDS ORDERED: HYDR-4354 PO (00:27)
[2019-08-04] MEDS ORDERED: CLON0.1T PO (00:27)
[2019-08-04] MEDS ORDERED: MIDO10TA PO (00:27)
[2019-08-04] MEDS ORDERED: ZOLP5TAB2 PO (00:27)
[2019-08-04] MEDS ORDERED: TRAM50TA2 PO (00:27)
[2019-08-04] MEDS ORDERED: HEPA500039 SQ (00:27)
[2019-08-04 00:31] VITALS: BP 92/39
[2019-08-04] MEDS ORDERED: HYDROCODONE/APAP 5/325MG 1 EACH TABLET PO PRN (01:30)
[2019-08-04] MEDS ORDERED: MAG HYDROX/AL HYDROX/SIMETH 30 ML UDC PO PRN (01:30)
[2019-08-04] MEDS ORDERED: Z GUARD REMEDY 2 OZ OINT TP PRN (01:30)
[2019-08-04] MEDS ORDERED: IV NS 0.9% 1,000 ML IV ONE (01:30)
[2019-08-04] MEDS ORDERED: MAGNESIUM HYDROXIDE 30 ML UDC PO PRN (01:30)
[2019-08-04] MEDS ORDERED: ACETAMINOPHEN 325 MG TABLET PO PRN (01:30)
[2019-08-04] MEDS ORDERED: HYDROCODONE/APAP 10/325MG 1 EA TABLET PO PRN (01:30)
[2019-08-04] MEDS ORDERED: ZOLPIDEM TARTRATE 5 MG TABLET PO PRN ×2 (01:30→16:30)
[2019-08-04] MEDS ORDERED: TRAMADOL HCL 50 MG TABLET PO PRN (01:30)
[2019-08-04] MEDS ORDERED: ONDANSETRON HCL/PF 4 MG/2 ML VIAL IVP PRN (01:30)
--- NOTE | 2019-08-04 01:42 | NUR ---
MS RN NOTE ADMINISTERED PRN NORCO 5/325 FOR PAIN 03/17 WILL CONTINUE TO MONITOR.
[2019-08-04] MEDS ORDERED: METO5TAB87 PO (01:50)
[2019-08-04] MEDS ORDERED: LEVE500T9 PO (01:50)
[2019-08-04] MEDS ORDERED: HYDR-4077 PO (01:50)
[2019-08-04] MEDS ORDERED: LORA1TAB PO (01:50)
[2019-08-04] MEDS ORDERED: SUCR1ORA4 PO (01:50)
[2019-08-04] MEDS ORDERED: NITR0.4T48 SL (01:50)
[2019-08-04] MEDS ORDERED: CODE118S4 PO (01:50)
[2019-08-04] MEDS ORDERED: MINO10TA2 PO (01:50)
[2019-08-04] MEDS ORDERED: POLY119P2 PO (01:50)
[2019-08-04] MEDS ORDERED: NIFE-34 PO (01:50)
[2019-08-04] MEDS ORDERED: ISOS20TA6 PO (01:50)
[2019-08-04] MEDS ORDERED: INSU3INS6 SQ (01:50)
--- NOTE | 2019-08-04 01:50 | NUR ---
MS RN NOTE ADMINISTERED PRN AMBIEN 5MG PER PATIENT REQUEST FOR SLEEP. WILL CONTINUE TO MONITOR
[2019-08-04] MEDS ORDERED: ESCI5TAB PO (01:51)
[2019-08-04] MEDS ORDERED: ATOR80TA PO (01:51)
[2019-08-04] MEDS ORDERED: FOLI1TAB16 PO (01:51)
[2019-08-04] MEDS ORDERED: ASPI-1152 PO (01:51)
[2019-08-04] MEDS ORDERED: ANAS1TAB8 PO (01:51)
[2019-08-04 04:00] VITALS: BP_SYST 101; BP_DIAS 30; BP_DIAS 32
--- NOTE | 2019-08-04 06:18 | NUR ---
MS RN CLOSE NOTE PATIENT IN BED. PATIENT IS A/OX4.REMAINS ON OXYGEN 2L/MIN VIA NASAL CANNULA. RESPIRATIONS ARE EVEN AND UNLABORED. NO SOB NOTED. NO DISTRESS NOTED. IV ACCESS MAINTAINED IN RAC #20 PATENT AND SALINE LOCKED. PAIN MANAGED WITH NORCO 5/325. BED REMAINS LOW AND LOCKED, HOB ELEVATED IN SEMI FOWLERS, SIDE RAILS UP X2, BED ALARM ON. CALL LIGHT WITHIN REACH. WILL ENDORSE TO NEXT SHIFT
[2019-08-04 08:00] VITALS: BP 97/38
--- NOTE | 2019-08-04 08:00 | NUR ---
MS1/RN AM SHIFT OPENING NOTES RECEIVED PT AWAKE IN BED, PT A/O X 4, SPEAKING MOSTLY UZBEK. DENIES ANY SYMPTOMS AT THIS TIME. NO ACUTE DISTRESS OR CHANGE OF CONDITION. ON 2L O2 VIA N/C SATURATING @ 96%, RESPIRATIONS EVEN & UNLABORED, LUNG SOUNDS CLEAR. IV SITE FLUSHED, PATENT WITH NO S/S OF INFECTION, SL. AV FISTULA ON LEFT UPPER ARM POSITIVE OF THRILL & BRUIT AND RIGHT CHEST WALL PERMACATH, DRESSING INTACT AND CLEAN. NO EDEMA NOTED. PT IS COMFORTABLE, SCHEDULED AM MEDS TO BE GIVEN. CL WITHIN REACHED AND SAFETY MAINTAINED. ON GOING MONITORING.
[2019-08-04] MEDS: PANTOPRAZOLE 40 MG TABLET.DR PO SCH (08:06)
[2019-08-04] MEDS: DOCUSATE SODIUM 100 MG CAPSULE PO SCH (08:07)
[2019-08-04] MEDS: MIDODRINE HCL (5MG) 5 MG TABLET PO SCH (08:07)
[2019-08-04] MEDS: HEPARIN SODIUM, PORCINE 5000 UNITS/1 ML VIAL SQ SCH ×2 (08:08→21:11)
[2019-08-04 10:43] LABS: BASOPHILS % (AUTO) 0.8 % (0.0-2.0); EOSINOPHILS % (AUTO) 1.8 % (0.0-6.0); HEMATOCRIT 32 % (33-45); HEMOGLOBIN 10.4 g/dL (11.5-14.8); LYMPHOCYTES # (AUTO) 0.8 /CMM (0.8-4.8); LYMPHOCYTES % (AUTO) 18.4 % (20.0-44.0); MEAN CORPUSCULAR HGB CONC 33 g/dl (31.0-36.0); MEAN CORPUSCULAR VOLUME 105 fL (82-100); MONOCYTES # (AUTO) 0.6 /CMM (0.1-1.30); MONOCYTES % (AUTO) 12.8 % (2.0-12.0); NEUTROPHILS % (AUTO) 66.2 % (43.0-81.0); PLATELET COUNT (AUTO) 174 /CMM (150-450); RED BLOOD CELL COUNT(AUTO) 3.03 MIL/uL (4.0-5.2); WHITE BLOOD COUNT (AUTO) 4.5 K/uL (4.3-11.0)
[2019-08-04 10:46] LABS: CALCIUM, SERUM 8.1 mg/dL (8.5-10.1); CREATININE 5.1 mg/dL (0.6-1.3); POTASSIUM 4.8 mmol/L (3.5-5.1)
[2019-08-04 10:50] LABS: MAGNESIUM 1.8 mg/dL (1.8-2.4); PHOSPHORUS 4.4 mg/dL (2.5-4.9)
--- NOTE | 2019-08-04 14:07 | NUR ---
MS1/RN HOME MEDS NOTIFIED PRIMARY TO RECONCILE HOME MEDICATIONS.
[2019-08-04 16:00] VITALS: BP 123/46
[2019-08-04] MEDS ORDERED: POLYETHYLENE GLYCOL 3350 17 GM POWD.PACK PO PRN (16:30)
[2019-08-04] MEDS: SUCRALFATE 1 G/10 ML UDC PO SCH ×2 (16:45→21:11)
[2019-08-04] MEDS ORDERED: METOCLOPRAMIDE HCL 10 MG TABLET PO SCH (17:00)
--- NOTE | 2019-08-04 17:10 | NUR ---
MS1/RN TROPONIN RESULT RECEIVED RESULT OF TROPONIN 1.701, STAT EKG ORDERED, WITH INTERPRETATION OF JUNCTIONAL RHYTHM WITH POSSIBLE ANTEROLATERAL INFARCT. RESULT MADE AWARE TO PRIMARY. Addendum: 08/04/19 at 1807 by SALEEM HEWITT RN ADDENDUM: REPEAT STAT EKG ORDERED. DR. BURCIAGA ON CASE. Addendum: 08/04/19 at 1820 by SALEEM HEWITT RN ADDENDUM: RESULT OF REPEAT EKG WITH DR. BURCIAGA AT BEDSIDE INTERPRETED EKG STRIP SINUS СЕРГЕЙ.
--- NOTE | 2019-08-04 19:11 | NUR ---
TELE1/RN AM SHIFT CLOSING NOTES ALL NEEDS MET. PT DENIES ANY CHEST PAIN OR OTHER SYMPTOMS IN RELATION WITH THE TROPONIN RESULT. PT ENDORSED TO PM NURSE TO CONTINUE CARE. CL WITHIN REACHED AND SAFETY MAINTAINED.
--- NOTE | 2019-08-04 19:19 | NUR ---
GOLD MINER NOTES PATIENT IN BED, AWAKE, ALERT AND ORIENTED X 4. MOSTLY CHINESE SPEAKING. SHOWS NO SIGNS OF ACUTE RESPIRATORY DISTRESS, NO ACUTE PAIN. IV ON RAC 20G CLEAN, DRY AND INTACT SHOWS NO INFILTRATION, NO REDNESS. UTE AV FISTULA WITH POSITIVE THRILL AND BRUIT. R CHEST WALL PERMA CATH. SAFETY PRECAUTIONS IN PLACE. BED IN LOWEST POSITION, LOCKED, AND CALL LIGHT KEPT WITHIN REACH. WILL CONTINUE TO MONITOR.
--- NOTE | 2019-08-04 19:53 | NUR ---
REAL ESTATE ASSOCIATE NOTES PATIENT REFUSED TROPONIN LABS. EXPLAINED TO THE PATIENT REASON FOR TROPONIN AND EDUCATED PATIENT. PATIENT CONTINUED TO REFUSED. WILL CONTINUE TO MONITOR.
[2019-08-04] MEDS: ATORVASTATIN 40 MG TABLET PO SCH (21:11)
[2019-08-04] MEDS: LEVETIRACETAM (250 MG) 250 MG TABLET PO SCH (21:11)
[2019-08-04] MEDS: INSULIN GLARGINE, 100 UNIT/ML CARTRIDGE SQ SCH (21:37)
[2019-08-04 22:08] VITALS: BP 118/46
[2019-08-05] VITALS: BP 135/58
[2019-08-05 04:00] VITALS: BP 123/53
--- NOTE | 2019-08-05 06:36 | NUR ---
OFFICE MACHINE SERVICE SUPERVISOR NOTES PATIENT IN BED, AWAKE, ALERT AND ORIENTED X 4. MOSTLY MACEDONIAN SPEAKING. SHOWS NO SIGNS OF ACUTE RESPIRATORY DISTRESS, NO ACUTE PAIN. TELE MONITOR SHOWS SINUS AFIB 50-60'S. IV ON RAC 20G CLEAN, DRY AND INTACT SHOWS NO INFILTRATION, NO REDNESS. UTE AV FISTULA WITH POSITIVE THRILL AND BRUIT. R CHEST WALL PERMA CATH INTACT. ALL DUE MEDICATIONS GIVEN. SAFETY PRECAUTIONS IN PLACE. BED IN LOWEST POSITION, LOCKED, AND CALL LIGHT KEPT WITHIN REACH. WILL ENDORSE TO ONCOMING NURSE.
[2019-08-05 06:44] LABS: EOSINOPHILS % (AUTO) 1.7 % (0.0-6.0); HEMATOCRIT 32 % (33-45); HEMOGLOBIN 10.6 g/dL (11.5-14.8); LYMPHOCYTES # (AUTO) 0.8 /CMM (0.8-4.8); LYMPHOCYTES % (AUTO) 16.9 % (20.0-44.0); MEAN CORPUSCULAR HGB CONC 34 g/dl (31.0-36.0); MEAN CORPUSCULAR VOLUME 105 fL (82-100); MONOCYTES # (AUTO) 0.7 /CMM (0.1-1.30); MONOCYTES % (AUTO) 13.5 % (2.0-12.0); NEUTROPHILS # (AUTO) 3.3 /CMM (1.8-8.9); NEUTROPHILS % (AUTO) 66.9 % (43.0-81.0); PLATELET COUNT (AUTO) 173 /CMM (150-450)
[2019-08-05 07:00] LABS: CALCIUM, SERUM 8.3 mg/dL (8.5-10.1); CREATININE 5.4 mg/dL (0.6-1.3); PHOSPHORUS 4.4 mg/dL (2.5-4.9); POTASSIUM 4.9 mmol/L (3.5-5.1)
[2019-08-05 07:30] LABS: THYROID STIMULATING HORMONE 7.995 uIU/mL (0.358-3.74)
[2019-08-05 08:00] VITALS: BP_SYST 112; BP_DIAS 58; BP_DIAS 68
[2019-08-05] MEDS: LEVETIRACETAM (250 MG) 250 MG TABLET PO SCH ×2 (08:11→21:14)
[2019-08-05] MEDS: DOCUSATE SODIUM 100 MG CAPSULE PO SCH (08:11)
[2019-08-05] MEDS: MIDODRINE HCL (5MG) 5 MG TABLET PO SCH (08:12)
[2019-08-05] MEDS: FOLIC ACID 1 MG TABLET PO SCH (08:12)
[2019-08-05] MEDS: ESCITALOPRAM OXALATE (10 MG) 10 MG TABLET PO SCH (08:12)
[2019-08-05] MEDS: PANTOPRAZOLE 40 MG TABLET.DR PO SCH (08:12)
[2019-08-05] MEDS: ASPIRIN EC 81 MG TABLET.DR PO SCH (08:14)
[2019-08-05] MEDS: SUCRALFATE 1 G/10 ML UDC PO SCH ×4 (08:17→21:11)
[2019-08-05] MEDS: HEPARIN SODIUM, PORCINE 5000 UNITS/1 ML VIAL SQ SCH ×2 (08:19→21:15)
[2019-08-05] MEDS ORDERED: AMIN30LI27 PO (09:29)
[2019-08-05] MEDS ORDERED: ASCO250T5 PO (09:29)
[2019-08-05] MEDS ORDERED: MAGN400O6 PO (09:29)
[2019-08-05] MEDS ORDERED: INSU100V42 SQ (09:29)
[2019-08-05] MEDS ORDERED: IPRA3AMP23 IH (09:29)
[2019-08-05] MEDS ORDERED: ESCI10TA PO (09:29)
[2019-08-05] MEDS ORDERED: MAGN400T26 PO (09:29)
[2019-08-05] MEDS ORDERED: POLY15DR40 EACHEYE (09:29)
[2019-08-05] MEDS ORDERED: MIRT15TA7 PO (09:29)
[2019-08-05] MEDS ORDERED: ACET-868 PO (09:29)
[2019-08-05] MEDS ORDERED: MELA5TAB PO (09:29)
[2019-08-05] MEDS ORDERED: FAMO20TA8 PO (09:29)
[2019-08-05] MEDS ORDERED: ARGI1POW13 PO (09:29)
[2019-08-05] MEDS ORDERED: SENN-261 PO (09:29)
[2019-08-05] MEDS ORDERED: INSU100V10 SQ (09:29)
[2019-08-05] MEDS ORDERED: SUCR1ORA15 PO (09:29)
[2019-08-05] MEDS ORDERED: ISOS120T13 PO (09:29)
[2019-08-05] MEDS ORDERED: APIX2.5T PO (09:29)
[2019-08-05] MEDS ORDERED: MINO2.5T PO (09:29)
[2019-08-05] MEDS ORDERED: FLUT16SP (09:29)
[2019-08-05] MEDS ORDERED: GUAI5SYR PO (09:29)
[2019-08-05] MEDS ORDERED: GABA-532 PO (09:29)
[2019-08-05 12:00] VITALS: BP_SYST 130; BP_DIAS 48; BP_DIAS 58
[2019-08-05 16:00] VITALS: BP_SYST 140; BP_DIAS 45; BP_DIAS 52
--- NOTE | 2019-08-05 17:16 | NUR ---
TELE/RN NOTES RECEIVED A PHONE CALL FROM LAB REGARDING A RESULT. PATIENT IS POSITIVE MRSA NARES. ISOLATION INITIATED. PATIENT CONTINUES TO REMAIN IN STABLE CONDITION. WILL CONTINUE TO MONITOR CLOSELY.
--- NOTE | 2019-08-05 19:10 | NUR ---
TELE/RN CLOSING NOTES PATIENT CONTINUES TO REMAIN IN STABLE CONDITION THROUGHOUT THE SHIFT. PROVIDED COMFORT AND SAFETY. PATIENT ABLE TO TOLERATE MEALS AND MEDS WELL. NO ADVERSE REACTIONS AT THIS TIME. PATIENT TOLERATED DIALYSIS WELL. ALL NEEDS ANTICIPATED. CALL LIGHT WITHIN REACHED. BED LOCKED AND IN LOWEST POSITION. SAFETY MAINTAINED. WILL CONTINUE TO MONITOR CLOSELY. ENDORSED TO PM NURSE FOR KEMAL.
[2019-08-05 20:00] VITALS: BP 115/54
[2019-08-05] MEDS: MUPIROCIN OINT 2% 22 GM TUBE SCH (21:10)
[2019-08-05] MEDS: ATORVASTATIN 40 MG TABLET PO SCH (21:14)
[2019-08-05] MEDS: INSULIN GLARGINE, 100 UNIT/ML CARTRIDGE SQ SCH (21:22)
[2019-08-06] VITALS: BP 136/52
[2019-08-06 04:00] VITALS: BP 116/53
--- NOTE | 2019-08-06 07:40 | NUR ---
RN OPENING NOTE: RECEIVED PATIENT IN BED THIS MORNING. PATIENT IS ALERT X3, UPPER SORBIAN SPEAKING, RESPONDS APPROPRIATELY. NO SIGNS OF RESPIRATORY DISTRESS NOTED, ON O2 2L/MIN VIA NC. SATING WELL. PATIENT ON TELE MONITOR, AFIB CONTROLLED AT 59. PATIENT IS ANURIC. HAS FISTULA @ UTE (+ BRUIT/THRILL) , PERMACATH AT [facility], BOTH SITES C/D/I, NO SIGNS OF COMPLICATION NOTED. SAFETY MEASURES IMPLEMENTED, BED IN LOWEST POSITION, LOCKED, SIDE RAILS UP X2, CALL LIGHT WITHIN REACH. WILL CONTINUE TO MONITOR PATIENT FOR ANY CHANGES.
[2019-08-06 08:00] VITALS: BP 130/45
[2019-08-06] MEDS: LEVETIRACETAM (250 MG) 250 MG TABLET PO SCH ×2 (09:25→21:02)
[2019-08-06] MEDS: SUCRALFATE 1 G/10 ML UDC PO SCH ×4 (09:25→21:02)
[2019-08-06] MEDS: ESCITALOPRAM OXALATE (10 MG) 10 MG TABLET PO SCH (09:25)
[2019-08-06] MEDS: DOCUSATE SODIUM 100 MG CAPSULE PO SCH (09:26)
[2019-08-06] MEDS: ASPIRIN EC 81 MG TABLET.DR PO SCH (09:26)
[2019-08-06] MEDS: FOLIC ACID 1 MG TABLET PO SCH (09:26)
[2019-08-06] MEDS: MIDODRINE HCL (5MG) 5 MG TABLET PO SCH (09:26)
[2019-08-06] MEDS: PANTOPRAZOLE 40 MG TABLET.DR PO SCH (09:26)
[2019-08-06] MEDS: HEPARIN SODIUM, PORCINE 5000 UNITS/1 ML VIAL SQ SCH ×2 (09:29→21:07)
[2019-08-06] MEDS: MUPIROCIN OINT 2% 22 GM TUBE SCH ×2 (09:31→21:03)
--- NOTE | 2019-08-06 10:11 | NUR ---
PATIENT REFUSED TRAMADOL, WILL CONTACT [facility] FOR ANOTHER PAIN MED
[2019-08-06] MEDS ORDERED: HYDROCODONE/APAP 5/325MG 1 EACH TABLET PO ONE (11:40)
[2019-08-06 12:00] VITALS: BP 108/46
[2019-08-06 12:51] LABS: BASOPHILS # (AUTO) 0.1 /CMM (0.0-0.2); BASOPHILS % (AUTO) 1.6 % (0.0-2.0); EOSINOPHILS % (AUTO) 1.1 % (0.0-6.0); HEMATOCRIT 32 % (33-45); HEMOGLOBIN 10.5 g/dL (11.5-14.8); LYMPHOCYTES # (AUTO) 0.8 /CMM (0.8-4.8); LYMPHOCYTES % (AUTO) 21.2 % (20.0-44.0); MEAN CORPUSCULAR HGB CONC 33 g/dl (31.0-36.0); MEAN CORPUSCULAR VOLUME 105 fL (82-100); MONOCYTES # (AUTO) 0.4 /CMM (0.1-1.30); MONOCYTES % (AUTO) 11.1 % (2.0-12.0); NEUTROPHILS # (AUTO) 2.4 /CMM (1.8-8.9); PLATELET COUNT (AUTO) 168 /CMM (150-450); RED BLOOD CELL COUNT(AUTO) 3.03 MIL/uL (4.0-5.2); WHITE BLOOD COUNT (AUTO) 3.7 K/uL (4.3-11.0)
[2019-08-06 13:05] LABS: CALCIUM, SERUM 8.4 mg/dL (8.5-10.1); CREATININE 3.9 mg/dL (0.6-1.3); PHOSPHORUS 3.4 mg/dL (2.5-4.9)
[2019-08-06 16:00] VITALS: BP 101/41
--- NOTE | 2019-08-06 19:08 | NUR ---
RN CLOSING NOTE: PATIENT REMAINS IN BED RESTING. PATIENT IS ALERT X3, AZERBAIJANI SPEAKING, RESPONDS APPROPRIATELY. NO SIGNS OF RESPIRATORY DISTRESS NOTED. SAFETY MEASURES IMPLEMENTED, BED IN LOWEST POSITION, LOCKED, SIDE RAILS UP X2, CALL LIGHT WITHIN REACH. WILL ENDORSE TO FOLLOWING SHIFT FOR CONTINUITY OF CARE.
--- NOTE | 2019-08-06 19:47 | NUR ---
FEATHERER NOTES RECEIVED PATIENT AWAKE IN BED WITH NO DISTRESS NOTED. CALL LIGHT WITHIN REACH. NO C/O PAIN OR DISCOMFORT. PERIPHERAL LINE INTACT AND PATENT. RUC PERMACATH INTACT WITH NO REDNESS, SWELLING, OR DRAINAGE NOTED. UTE FISTULA INTACT WITH (+) BRUIT AND THRILL. PERIPHERAL LINE INTACT AND PATENT. CONTACT ISOLATION OBSERVED AND MAINTAINED. ENCOURAGED USE OF CALL LIGHT FOR ASSISTANCE AND VERBALIZED GOOD UNDERSTANDING. ROOM FREE OF CLUTTER AND BELONGINGS KEPT NEAR BEDSIDE. BED IN LOW LOCK SETTING WITH BED ALARM ON AND FUNCTIONING PROPERLY. WILL CONTINUE TO MONITOR
[2019-08-06 20:00] VITALS: BP 121/54
[2019-08-06] MEDS: ATORVASTATIN 40 MG TABLET PO SCH (21:02)
[2019-08-06] MEDS: INSULIN GLARGINE, 100 UNIT/ML CARTRIDGE SQ SCH (21:08)
[2019-08-07] VITALS: BP 117/53
[2019-08-07 04:00] VITALS: BP 107/53
--- NOTE | 2019-08-07 06:34 | NUR ---
MS KOSTA NOTES PATIENT ASLEEP IN BED WITH NO DISTRESS NOTED. CALL LIGHT WITHIN REACH. NO C/O PAIN OR DISCOMFORT. RUC PERMACATH INTACT WITH DRESSING CLEAN DRY AND INTACT. UTE AV SHUNT INTACT WITH (+) BRUIT AND THRILL. PERIPHERAL LINE INTACT AND PATENT. CONTACT ISOLATION OBSERVED AND MAINTAINED. ROOM FREE OF CLUTTER AND BELONGINGS KEPT NEAR BEDSIDE. BED IN LOW LOCK SETTING WITH BED ALARM ON AND FUNCTIONING PROPERLY. WILL CONTINUE TO MONITOR
[2019-08-07 08:00] VITALS: BP 139/62
[2019-08-07] MEDS ORDERED: APIXABAN 5 MG TABLET PO SCH (09:00)
[2019-08-07 09:14] VITALS: BP_SYST 132
[2019-08-07] MEDS: PANTOPRAZOLE 40 MG TABLET.DR PO SCH (09:14)
[2019-08-07] MEDS: SUCRALFATE 1 G/10 ML UDC PO SCH (09:14)
[2019-08-07] MEDS: FOLIC ACID 1 MG TABLET PO SCH (09:14)
[2019-08-07] MEDS: MIDODRINE HCL (5MG) 5 MG TABLET PO SCH (09:14)
[2019-08-07] MEDS: ESCITALOPRAM OXALATE (10 MG) 10 MG TABLET PO SCH (09:14)
[2019-08-07] MEDS: DOCUSATE SODIUM 100 MG CAPSULE PO SCH (09:15)
[2019-08-07] MEDS: MUPIROCIN OINT 2% 22 GM TUBE SCH (09:19)
[2019-08-07] MEDS: LEVETIRACETAM (250 MG) 250 MG TABLET PO SCH (09:19)
[2019-08-07] MEDS ORDERED: MUPI22OI7 (10:37)
== END 2019-08-07 14:44 | DRG 917 ==
LOC: MEDSG1 23:36 → TELE1 08-04 18:04 → MEDSG1 08-07 01:22
PROVIDERS: ADMIT Registered Nurse; ATTEND Nurse Practitioner Acute Care
PROC: 5A1D70Z Performance of Urinary Filtration, Intermittent, Less than 6 Hours Per Day (ICD-10-PCS; principal; 2019-08-05)
DX: T46.5X1A Poisoning by other antihypertensive drugs, accidental (unintentional), initial encounter (principal); I21.A1 Myocardial infarction type 2; J96.01 Acute respiratory failure with hypoxia; N18.6 End stage renal disease; E87.1 Hypo-osmolality and hyponatremia; I13.2 Hypertensive heart and chronic kidney disease with heart failure and with stage 5 chronic kidney disease, or end stage renal disease; D68.69 Other thrombophilia; E66.9 Obesity, unspecified; E11.22 Type 2 diabetes mellitus with diabetic chronic kidney disease; I48.91 Unspecified atrial fibrillation; Z86.73 Personal history of transient ischemic attack (TIA), and cerebral infarction without residual deficits; Z99.2 Dependence on renal dialysis; I95.2 Hypotension due to drugs; Y92.89 Other specified places as the place of occurrence of the external cause; D63.1 Anemia in chronic kidney disease; I48.0 Paroxysmal atrial fibrillation; Z85.3 Personal history of malignant neoplasm of breast; Z90.11 Acquired absence of right breast and nipple; I50.9 Heart failure, unspecified; I07.1 Rheumatic tricuspid insufficiency; G40.409 Other generalized epilepsy and epileptic syndromes, not intractable, without status epilepticus; R00.1 Bradycardia, unspecified; Z79.4 Long term (current) use of insulin
CPT/HCPCS: 36415; 71045-TC; 80048-TC; 80061-TC; 80177; 82962-TC; 83735-TC; 83880; 84100-TC; 84439-TC; 84443-TC; 84484-TC; 85025-TC; 86706; 87081-TC; 87340; 90935-TC; 93307-TC; G0378; J1644; J1815; J7030